=== PATIENT | male | born 1970 | race Caucasian/White ===

== ENCOUNTER 2018-11-01 05:26 | Emergency (ER) | payer MEDICAID ==
[~2018-11-01] VITALS: Ht 188 cm; Wt 136.1 kg
--- NOTE | 2018-11-01 05:26 | NUR ---
[place] [employer] @ BEDSIDE, PLACING PT ON 5150 HOLD. GUILHERME ESCALANTE MADE AWARE.
--- NOTE | 2018-11-01 05:26 | NUR ---
Patient BIBA BLS accompanied by [place] [employer], transferred to bed 5. RN evaluating patient at bedside.
[2018-11-01 05:29] VITALS: BP 143/88
--- NOTE | 2018-11-01 05:33 | NUR ---
48 YO MALE KYM BLS FOR ALOC/HYPOTHERMIC. PT WAS FOUND NEAR TRAIN TRACKS IN [place] BY PD. PT INITIALLY STATED HE HAD THOUGHTS OF SUICIDAL IDEATION. PT RESPONDED, NOT @ THIS TIME BUT I HAVE HAD EPISODES IN THE PAST. PT STATES HE IS FROM [facility]. PT AAOX1 ANSWERING QUESTIONS, FOLLOWING COMMANDS. PT HAS AUDITORY AND VISUAL HALLUCINATIONS @ THIS TIME. S1 S2 HEARD, TRACE EDEMA NOTED. LUNGS CLEAR EVEN UNLABORED, ABDOMEN SOFT. PT VOIDING IN BATHROOM WITH ASSIST. SKIN HAS MULTIPLE AREAS OF REDNESS TO UPPER CHEST AND BACK. BILATERAL FEET HAVE REDNESS TO SOLES OF FEET. SUICIDAL PRECAUTIONS IN PLACE. ALL SAFETY PRECAUTIONS IN PLACE. WILL CONTINUE TO OBSERVE. Addendum: 11/01/18 at 0633 by EVETTE PT STATES HE TAKES [employer]IL[employer] AND SEROQUEL FOR MENTAL HEALTH. PT STATES HE DID NOT TAKE HIS MEDS AND IS UNSURE OF HIS LAST DOSE.
--- NOTE | 2018-11-01 05:50 | NUR ---
PT TALKING TO HIMSELF IN RESTROOM. PT STATES, "THERE IS A MONSTER IN THE TOILET." REORIENTED PT. PT ABLE TO LEAVE URINE IN URINE CUP. PT AMB BACK TO [facility] 5
--- NOTE | 2018-11-01 06:04 | NUR ---
Dr. Barraza evaluating patient at bedside.
--- NOTE | 2018-11-01 06:05 | NUR ---
PER DR NAVAS, NO EKG REQUESTED AT THIS TIME.
--- NOTE | 2018-11-01 06:22 | NUR ---
PT CONTINUES TO MUMBLE WORDS TO HIMSELF. PT DENIES PAIN @ THIS TIME. WILL CONTINUE TO OBSERVE.
--- NOTE | 2018-11-01 06:35 | NUR ---
PT AMBULATED OUT OF BED DOWN ER HALLWAY TOWARD EXIT DOOR, STATING, "YOU ARE GOING TO STEAL MY HEART." PT REORIENTED BY STAFF AND INSTRUCTED TO GO BACK TO ER [facility] FOR SAFETY. REASSURED PT THAT BREAKFAST AND DOCTORS NEED TO COME SEE HIM. SECURITY CALLED @ BEDSIDE. PT AMBULATED BACK TO [facility] BED 5. WILL CONTINUE TO OBSERVE.
--- NOTE | 2018-11-01 06:45 | NUR ---
PT THREATENING STAFF, PT STATING, ' "YOU ARE GOING JONATHAN SORRY DO NOT TOUCH ME" CHARGE NURSE REORIENTING PATIENT. SECURITY IN ER.
--- NOTE | 2018-11-01 06:51 | NUR ---
PT PUSHED EXIT BUTTON TO LEAVE ER. CHARGE NURSE TRIED TO REORIENT PT. SECURITY FOLLOWING PT OUTSIDE OF ER.
--- NOTE | 2018-11-01 07:12 | NUR ---
[place] PD @ bedside brought pt back to ER. pt agreeable to stay in [facility]. charge nurse and ER MD made aware.
[2018-11-01] MEDS ORDERED: ZIPRASIDONE MESYLATE 20 MG/ML VIAL IM ONE (07:20)
--- NOTE | 2018-11-01 07:21 | NUR ---
RECEIVED REPORT FROM CONNER TRAMMELL.
--- NOTE | 2018-11-01 07:21 | NUR ---
report given to MALGORZATA whittaker RN for continuity of care.
[2018-11-01] MEDS ORDERED: WATER STERILE 10 ML MC ONE (07:34)
[2018-11-01 08:14] LABS: BASOPHILS % (AUTO) 0.6 % (0.0-2.0); EOSINOPHILS # (AUTO) 0.1 K/uL (0-0.4); EOSINOPHILS % (AUTO) 1.2 % (0.0-4.0); HEMATOCRIT 43.2 % (36-52); HEMOGLOBIN 14.5 g/dL (12.0-18.0); LYMPHOCYTES # (AUTO) 0.8 K/uL (2.0-11.5); LYMPHOCYTES % (AUTO) 13.1 % (20.5-51.1); MEAN CORPUSCULAR HEMOGLOBIN 30 pg (27-31); MEAN CORPUSCULAR HGB CONC 34 g/dL (33-37); MONOCYTES # (AUTO) 0.5 K/uL (0.8-1.0); MONOCYTES % (AUTO) 8.8 % (1.7-9.3); NEUTROPHILS # (AUTO) 4.5 K/uL (1.8-7.7); NEUTROPHILS % (AUTO) 76.3 % (42.2-75.2); PLATELET COUNT (AUTO) 180 K/uL (140-450); RED BLOOD CELL COUNT(AUTO) 4.91 MIL/uL (4.20-6.10); RED CELL DISTRIBUTION WIDTH 13.7 % (11.6-13.7)
[2018-11-01 08:30] LABS: BARBITURATE, URINE NEG. ng/ml (NEG <=200); BENZODIAZEPINE, URINE NEG. ng/mL (NEG <=200); CANNABINOID, URINE NEG. ng/mL (NEG <=50); COCAINE, URINE NEG. ng/mL (NEG <=300); OPIATE, URINE NEG. ng/mL (NEG <=2000); PHENCYCLIDINE SCREEN,URINE NEG. ng/mL (NEG <=25)
[2018-11-01 08:31] LABS: APPEARANCE,URINE CLOUDY (CLEAR); BILIRUBIN,URINE 2+ (NEGATIVE); BLOOD, URINE NEGATIVE (NEGATIVE); COLOR,URINE YELLOW (YELLOW); LEUKOCYTE ESTERASE ,URINE NEGATIVE (NEGATIVE); NITRITE, URINE NEGATIVE (NEGATIVE); PH,URINE 5.5 (5.0-9.0); UGLUCOSE NEGATIVE (NEGATIVE)
[2018-11-01 08:35] LABS: ALBUMIN 3.8 g/dL (3.4-5.0); ASPARTATE AMINOTRANSFERASE 31 U/L (15-37); CARBON DIOXIDE 28.5 mmol/L (21-32); CHLORIDE 102 mmol/L (98-107); CREATININE 0.9 mg/dL (0.7-1.3); GFR ARICAN-AMERICAN 115 mL/min (>90); GLUCOSE 95 mg/dL (74-106); POTASSIUM 3.5 mmol/L (3.5-5.1); SODIUM SERUM 142 mmol/L (136-145); TOTAL BILIRUBIN 1.7 mg/dL (0.0-1.0); UREA NITROGEN, BLOOD 24 mg/dL (7-18)
--- NOTE | 2018-11-01 08:52 | NUR ---
Patient appears to be SLEEPING comfortably in bed. Respirations even and unlabored.WILL CONTINUE TO MONITOR.
[2018-11-01 09:07] LABS: RBC,URINE NONE SEEN /HPF (0-5); URINE AMORPHOUS URATE 4+ /HPF (None Seen); WBC,URINE 0-5 (RARE) /HPF (0-5)
[2018-11-01 09:31] LABS: SALICYLATE < 2.8 mg/dL (2.8-20.0)
[2018-11-01 09:32] LABS: ACETAMINOPHEN < 0.5 ug/ml (10-30)
--- NOTE | 2018-11-01 13:30 | NUR ---
PATIENT PROVIDED WITH MEAL TRAY SITTING UP AND EATING.
--- NOTE | 2018-11-01 14:05 | NUR ---
Patient appears to be resting comfortably in bed. Vital Signs within normal limits. Respirations even and unlabored.
--- NOTE | 2018-11-01 14:05 | NUR ---
Faxed patient packet out to the following facilities: [facility] Deepthi Lugo
--- NOTE | 2018-11-01 17:35 | NUR ---
PATIENT PROVIDED WITH MEAL TRAY SITTING UP AND EATING. Addendum: 11/01/18 at 1913 by MED1 PT DENIES TO HURT HIMSELF OR OTHERS.
--- NOTE | 2018-11-01 19:13 | NUR ---
Pt report given to PAUL TRAMMELL. Transfer of care at this time.
--- NOTE | 2018-11-01 19:15 | NUR ---
ASSUMED CARE OF PT AT THIS TIME, PT IN BED SLEEPING, EASILY AROUSABLE, IN NO RESTRAINTS, WILL CONTINTUE TO MONITOR
--- NOTE | 2018-11-01 20:50 | NUR ---
TELEPSYCH INITIATED PER DR. MOORE
--- NOTE | 2018-11-01 21:19 | NUR ---
PT LAYING IN BED AWAKE AND CALM, WILL CONTINUE TO MONITOR.
--- NOTE | 2018-11-01 22:50 | NUR ---
SPOKE W/ DR WEBER AND GAVE REPORT ON PT, TO CALL VIA TELEPSYCH
--- NOTE | 2018-11-01 22:58 | NUR ---
TELESPJOHNNY, DR. SANCHEZ, SPOKE WITH JP SIMON
--- NOTE | 2018-11-01 23:07 | NUR ---
TELEPSYCH, DR. SANCHEZ, SPOKE WITH PT VIA REMOTE COMMUNICATION
--- NOTE | 2018-11-01 23:22 | NUR ---
Gal zarate in [facility] - 11/01/18 at 2322 by BROOKLYNN
--- NOTE | 2018-11-01 23:22 | NUR ---
TELEPSYCH, DR. SANCHEZ, SPOKE WITH DR. MOORE
--- NOTE | 2018-11-01 23:31 | NUR ---
Still no vacancy at any of the designated facilities, [facility]- [facility] intake [facility] intake [facility] intake [facility]- [facility] intake [facility] intake ER clerk Tate made aware , will continue to make calls for placement and notify ER if placement is found.
--- NOTE | 2018-11-01 23:45 | NUR ---
PT SLEEPING IN BED, EASILY AROUSABLE, WILL CONTINUE TO MONITOR.
[2018-11-02 00:55] VITALS: BP 138/74
--- NOTE | 2018-11-02 00:55 | NUR ---
Also given list of mental health resources available to him. Arrangement for bus pass.
--- NOTE | 2018-11-02 00:55 | NUR ---
Patient discharged with v/s stable. Written and verbal after care instructions given and explained. Patient verbalized understanding. Ambulatory with steady gait. All questions addressed prior to discharge. Advised to follow up with PMD. Refuses offer of long term placement. Given list of available shelters in surrounding areas.
== END 2018-11-02 00:55 | disposition home or self-care (01) ==
LOC: MED 05:26
DX: F29 Unspecified psychosis not due to a substance or known physiological condition (principal); F32.9 Major depressive disorder, single episode, unspecified; R45.851 Suicidal ideations
CPT/HCPCS: 36415; 80053; 80305; 81001; 85025; 96372; 99283; G0480; G0482; J3486